=== PATIENT | male | born 1975 | race Caucasian/White ===

== ENCOUNTER 2017-07-24 21:55 | Emergency (ER) | payer OTHER ==
[~2017-07-24] VITALS: Ht 180.3 cm; Wt 95.3 kg
[~2017-07-24 21:55] MED LIST: CIPR500T94 PO; EPIPEN 2-P0.3 MG/0.3 IJ; HYDR-971 PO; HYDR25TA PO; METR250T PO; ONDA4TAB10 SL; PRED-220 PO
[2017-07-24 22:07] VITALS: BP 145/96
[2017-07-24] MEDS ORDERED: predniSONE 20 MG TABLET PO ONE (22:30)
[2017-07-24] MEDS ORDERED: HYDROcodone/APAP 5/325MG 1 TAB TABLET PO ONE (22:30)
[2017-07-24] MEDS ORDERED: HYDR-971 PO (22:54)
[2017-07-24] MEDS ORDERED: PRED20TA PO (22:54)
--- NOTE | 2017-07-24 22:54 | PHYS DOC ---
Past Medical History Past Medical History: Hypertension Additional Past Medical Histor: sciatica Past Surgical History: No Surgical History Additional Information: 1 ppd Alcohol Use: None Drug Use: None Adult General Chief Complaint Chief Complaint: LOWER EXT PAIN HPI HPI Patient is a 42 year old male presents the ED complaining of back pain 2 days. Patient states he has a history of sciatica. 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 Patient states he has pain that runs from his left buttock down his left leg. Describes the pain as sharp. Rates the pain as 8 out of 10. States same symptoms with previous exacerbations of his sciatica pain. Denies fever, recent travel, calf pain, headache, trauma, nausea/ vomiting, dizziness, weakness, chest pain or shortness of breath. Review of Systems Review of Systems Constitutional: Denies fever or chills [] Eyes: Denies change in visual acuity, redness, or eye pain [] HENT: Denies nasal congestion or sore throat [] Respiratory: Denies cough or shortness of breath [] Cardiovascular: No additional information not addressed in HPI [] GI: Denies abdominal pain, nausea, vomiting, bloody stools or diarrhea [] : Denies dysuria or hematuria [] Musculoskeletal: Denies back pain or joint pain [] Integument: Denies rash or skin lesions [] Neurologic: Denies headache, focal weakness or sensory changes [] Endocrine: Denies polyuria or polydipsia [] All other systems were reviewed and found to be within normal limits, except as documented in this note. Current Medications Current Medications Current Medications Medications (Trade) Dose Ordered Sig/[facility] Start Time Stop Time Status Last Admin Dose Admin Acetaminophen/ Hydrocodone Bitart (Lortab 5/325) 1 tab 1X ONCE 07/24/17 22:30 07/24/17 22:31 DC 07/24/17 22:47 1 TAB Prednisone (Prednisone) 60 mg 1X ONCE 07/24/17 22:30 07/24/17 22:31 DC 07/24/17 22:47 60 MG Allergies Allergies Allergies Coded Allergies Type Severity Reaction Last Updated Verified No Known Drug Allergies 02/23/14 No Physical Exam Physical Exam Constitutional: Well developed, well nourished, no acute distress, non-toxic appearance. [] HENT: Normocephalic, atraumatic, bilateral external ears normal, oropharynx moist, no oral exudates, nose normal. [] Eyes: PERRLA, EOMI, conjunctiva normal, no discharge. [] Neck: Normal range of motion, no tenderness, supple, no stridor. [] Cardiovascular:Heart rate regular rhythm, no murmur [] Lungs & Thorax: Bilateral breath sounds clear to auscultation [] Abdomen: Bowel sounds normal, soft, no tenderness, no masses, no pulsatile masses. [] Skin: Warm, dry, no erythema, no rash. [] Back: No tenderness FROM. NV INTACT, no CVA tenderness. [] Extremities: No bony tenderness, PAIN RADIATES DOWN LEFT LEG IN SCIATIC NERVE DISTRIBUTION. no cyanosis, no clubbing, ROM intact, no edema. [] Neurologic: Alert and oriented X 3, normal motor function, normal sensory function, no focal deficits noted. [] Psychologic: Affect normal, judgement normal, mood normal. [] Current Patient Data Vital Signs Vital Signs Date Time Temp Pulse Resp B/P (MAP) Pulse Ox O2 Delivery O2 Flow Rate FiO2 07/24/17 22:47 20 95 Room Air 07/24/17 22:07 98.1 81 98.1 EKG EKG [] Radiology/Procedures Radiology/Procedures [] Course & Med Decision Making Course & Med Decision Making Pertinent Labs and Imaging studies reviewed. (See chart for details) []No bony tenderness. No x-ray warranted. Patient's pain improved in ED. Patient able to ambulate without assistance. No focal neural deficits. Discussed follow-up with orthopedics in 1-2 days. Provided contact information/ education. Discussed reasons to return to the ED. Patient understands and agrees with plan. Dragon Disclaimer Dragon Disclaimer This electronic medical record was generated, in whole or in part, using a voice recognition dictation system. Departure Departure Impression: Primary Impression: Sciatica Disposition: 01 HOME, SELF-CARE Condition: IMPROVED Referrals: MAXX JASON (PCP) MIKE MAZA MD Patient Instructions: Sciatica Scripts Prednisone (PREDNISONE) 20 Mg Tablet 2 TAB PO DAILY for 5 Days, #10 TAB Prov: JOHN ROBLERO 07/24/17 Hydrocodone/Apap 5-325 (NORCO 5-325 TABLET) 1 Each Tablet 1 TAB PO Q4-6HRS, #10 TAB Prov: JOHN ROBLERO 07/24/17 JOHN ROBLERO Jul 24, 2017 22:54
== END 2017-07-24 23:10 | disposition home or self-care (01) ==
LOC: ER 21:55
DX: M54.42 Lumbago with sciatica, left side (principal); I10 Essential (primary) hypertension; F17.200 Nicotine dependence, unspecified, uncomplicated
CPT/HCPCS: 99283; J7512

== ENCOUNTER 2019-01-01 16:00 | Emergency (ER) | payer OTHER ==
[~2019-01-01] VITALS: Ht 180.3 cm; Wt 95.3 kg
[~2019-01-01 16:00] MED LIST changes: +HYDR-3164 PO; -HYDR-971 PO; +PRED20TA PO
[2019-01-01] MEDS ORDERED: FLUORESCEIN OPHTH TEST STRIP. ONE (16:50)
[2019-01-01] MEDS ORDERED: TETRACAINE 0.5% OPHTH SOLUTION 4ML BOTTLE. ONE (16:50)
[2019-01-01] MEDS ORDERED: PROPARACAINE 0.5% OPHTH SOLUTION 15ML BOTTLE. OD ONE (17:00)
--- NOTE | 2019-01-01 17:16 | PHYS DOC ---
Past Medical History Past Medical History: Hypertension Additional Past Medical Histor: sciatica (REYNA PENG DO) Past Surgical History: No Surgical History (REYNA PENG DO) Alcohol Use: None Drug Use: None (REYNA PENG DO) Adult General Chief Complaint Chief Complaint: EYE PROBLEMS HPI HPI Patient is a 43 year old male who presents with acute right eye pain/injury while clearing brush pile. Patient states he was throwing of briar tree when a thorn scraped across his right eye. 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 Reports eye pain, tearing and blurred vision. He can't distinguish a foreign body sensation. Patient does not wear contact lenses or eye glasses. He was not wearing protective eyewear at time of injury. Last tetanus is unknown.[] (REYNA PENG DO) Review of Systems Review of Systems ROS All other systems were reviewed and found to be within normal limits, except as documented in this note. (REYNA PENG DO) Current Medications Current Medications Current Medications Medications (Trade) Dose Ordered Sig/Ricci Start Time Stop Time Status Last Admin Dose Admin Diphtheria/ Tetanus/Acell Pertussis (Boostrix) 0.5 ml ONCE ONCE 01/01/19 18:30 01/01/19 18:31 DC 01/01/19 18:27 0.5 ML Fluorescein Sodium (Ful-Lois) 1 strip 1X ONCE 01/01/19 19:30 01/01/19 19:31 DC Morphine Sulfate (Morphine Sulfate) 4 mg 1X ONCE 01/01/19 18:30 01/01/19 18:31 DC 01/01/19 18:16 4 MG Ondansetron HCl (Zofran) 4 mg 1X ONCE 01/01/19 17:30 01/01/19 17:31 DC 01/01/19 17:26 4 MG Proparacaine HCl (Alcaine) 3 drop 1X ONCE 01/01/19 17:00 01/01/19 17:59 DC Tetracaine HCl (Tetracaine) 1 drop 1X ONCE 01/01/19 17:30 01/01/19 17:31 DC 01/01/19 17:30 1 DROP Vancomycin HCl (Vanco Per Pharmacy) 1 each PRN DAILY PRN 01/01/19 18:00 Vancomycin HCl 2 gm/Sodium Chloride 500 ml @ 250 mls/hr 1X ONCE 01/01/19 18:15 01/01/19 20:14 01/01/19 18:18 250 MLS/HR (HEIDI GREGG DO) Allergies Allergies Allergies Coded Allergies Type Severity Reaction Last Updated Verified No Known Drug Allergies 02/23/14 No (HEIDI GREGG DO) Physical Exam Physical Exam Constitutional: Well developed, well nourished, moderate distress secondary to pain. [] HENT: Normocephalic, atraumatic, bilateral external ears normal, oropharynx moist, no oral exudates, nose normal. [] Eyes: PERRLA, EOMI, orbits, no lid laceration, abrasion, contusion, right conjunctivae are sclerae are injected with min lid upper/lower lid edema, large ovoid shaped corneal abrasion at 5 o'clock position with possible Elieser sign. No obvious identified foreign body. [] Neck: Normal range of motion, no tenderness. [] Neurologic: Alert and oriented X 3, normal motor function, normal sensory function, no focal deficits noted. [] Psychologic: Affect normal, judgement normal, mood normal. [] (REYNA PENG DO) Physical Exam 1844 Exam Constitutional: Well developed, well nourished, no acute distress, non-toxic appearance HENT: Normocephalic, atraumatic, oropharynx moist Eyes: PERRL, EOMI, conjunctiva injected to right eye, no discharge; Slit lamp exam noted right eye with positive fluorescene uptake at 5 o'clock with vertical line, no active flow noted at this time, small fluorescene blush which appears to be in anterior chamber Visual acuities: L 20/30 R 20/25 B 20/20. Skin: Warm, dry, no erythema, no rash Neurologic: Alert and oriented X 3, no focal deficits noted Psychologic: Affect normal, judgement normal (HEIDI GREGG DO) Current Patient Data Vital Signs Vital Signs Date Time Temp Pulse Resp B/P (MAP) Pulse Ox O2 Delivery O2 Flow Rate FiO2 01/01/19 19:10 70 18 157/95 (115) 96 Room Air 01/01/19 16:48 98.4 98.4 (HEIDI GREGG DO) Lab Values Laboratory Tests Test 01/01/19 17:20 White Blood Count 12.2 x10^3/uL (4.0-11.0) H Red Blood Count 4.96 x10^6/uL (4.30-5.70) Hemoglobin 15.8 g/dL (13.0-17.5) Hematocrit 45.3 % (39.0-53.0) Mean Corpuscular Volume 91 fL (79-100) Mean Corpuscular Hemoglobin 32 pg (25-35) Mean Corpuscular Hemoglobin Concent 35 g/dL (31-37) Red Cell Distribution Width 12.6 % (11.5-14.5) Platelet Count 283 x10^3/uL (140-400) Neutrophils (%) (Auto) 68 % (31-73) Lymphocytes (%) (Auto) 22 % (24-48) L Monocytes (%) (Auto) 7 % (0-9) Eosinophils (%) (Auto) 2 % (0-3) Basophils (%) (Auto) 1 % (0-3) Neutrophils # (Auto) 8.3 x10^3uL (1.8-7.7) H Lymphocytes # (Auto) 2.7 x10^3/uL (1.0-4.8) Monocytes # (Auto) 0.9 x10^3/uL (0.0-1.1) Eosinophils # (Auto) 0.2 x10^3/uL (0.0-0.7) Basophils # (Auto) 0.1 x10^3/uL (0.0-0.2) Sodium Level 142 mmol/L (136-145) Potassium Level 3.7 mmol/L (3.5-5.1) Chloride Level 103 mmol/L (98-107) Carbon Dioxide Level 28 mmol/L (21-32) Anion Gap 11 (6-14) Blood Urea Nitrogen 20 mg/dL (8-26) Creatinine 1.6 mg/dL (0.7-1.3) H Estimated GFR (Cockcroft-Gault) 47.9 Glucose Level 72 mg/dL (70-99) Calcium Level 10.0 mg/dL (8.5-10.1) Laboratory Tests 01/01/19 17:20 Laboratory Tests 01/01/19 17:20 (HEIDI GREGG DO) Lab Values Laboratory Tests Test 01/01/19 17:20 White Blood Count 12.2 x10^3/uL (4.0-11.0) H Red Blood Count 4.96 x10^6/uL (4.30-5.70) Hemoglobin 15.8 g/dL (13.0-17.5) Hematocrit 45.3 % (39.0-53.0) Mean Corpuscular Volume 91 fL (79-100) Mean Corpuscular Hemoglobin 32 pg (25-35) Mean Corpuscular Hemoglobin Concent 35 g/dL (31-37) Red Cell Distribution Width 12.6 % (11.5-14.5) Platelet Count 283 x10^3/uL (140-400) Neutrophils (%) (Auto) 68 % (31-73) Lymphocytes (%) (Auto) 22 % (24-48) L Monocytes (%) (Auto) 7 % (0-9) Eosinophils (%) (Auto) 2 % (0-3) Basophils (%) (Auto) 1 % (0-3) Neutrophils # (Auto) 8.3 x10^3uL (1.8-7.7) H Lymphocytes # (Auto) 2.7 x10^3/uL (1.0-4.8) Monocytes # (Auto) 0.9 x10^3/uL (0.0-1.1) Eosinophils # (Auto) 0.2 x10^3/uL (0.0-0.7) Basophils # (Auto) 0.1 x10^3/uL (0.0-0.2) Sodium Level 142 mmol/L (136-145) Potassium Level 3.7 mmol/L (3.5-5.1) Chloride Level 103 mmol/L (98-107) Carbon Dioxide Level 28 mmol/L (21-32) Anion Gap 11 (6-14) Blood Urea Nitrogen 20 mg/dL (8-26) Creatinine 1.6 mg/dL (0.7-1.3) H Estimated GFR (Cockcroft-Gault) 47.9 Glucose Level 72 mg/dL (70-99) Calcium Level 10.0 mg/dL (8.5-10.1) Laboratory Tests 01/01/19 17:20 Laboratory Tests 01/01/19 17:20 (REYNA PENG DO) EKG EKG [] (REYNA PENG DO) Radiology/Procedures Radiology/Procedures [CT orbits pending: ] (REYNA PENG DO) Radiology/Procedures PROCEDURE: CT ORBITS WO CONTRAST CT study of the orbits without contrast Clinical indications: Right eye pain. Possible foreign body. TECHNIQUE: Noncontrast helical CT scanning of the orbits was performed. Multiplanar 2-D reconstructions were generated. PQRS compliance Statement One or more of the following individualized dose reduction techniques were utilized for this study: 1. Automated exposure control 2. Adjustment of the mA and/or kV according to patient size 3. Use of iterative reconstruction technique FINDINGS: No metallic or radiopaque foreign body is seen. No preseptal or post septal soft tissue edema is evident. The extraocular muscles and optic nerves are symmetric and unremarkable. No soft tissue hematoma or soft tissue mass or abscess is seen within either orbit. No proptosis is seen. No fracture is evident. Mild mucosal thickening of ethmoid sinuses is seen bilaterally. No air-fluid levels are seen within the paranasal sinuses. No lytic process is evident. IMPRESSION: Mild mucosal thickening of the ethmoid sinuses bilaterally. Otherwise normal study. No foreign body is evident. Electronically signed by: Jeff Nye MD (01/01/2019 6:42 PM) [facility] (HEIDI GREGG DO) Course & Med Decision Making Course & Med Decision Making Pertinent Labs and Imaging studies reviewed. (See chart for details) [Right eye injury with concern for corneal abrasion and possible globe rupture. Pain addressed, eye irrigated, large corneal abrasion present with possible Elieser sign on fluorescein staining. No foreign body identified. Tetanus updated and initial abx prophylaxis given. CT orbits ordered and pending. Care en dorsed to oncoming [facility] at 1800 with anticipation transfer to tertiary care center with ophthalmology coverage. ] (REYNA PENG DO) Course & Med Decision Making 1800- Sign out received from Dr. Peng for patient with possible puncture to anterior chamber of right eye. CT orbits pending at time of sign out. Patient seen and evaluated by myself. Repeat fluorescein exam performed. Findings continue with possible anterior chamber puncture. NO active flow noted at this time. Eyelid everted. Visual acuities performed. CT orbits without retained foreign body. 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 Patient requesting . Discussed case with transfer line ([place]). Dr. Cinthya Phelps accepting of transfer to ED for further evaluation and treatment. Discussed current findings and plan with patient and family, who acknowledge understanding and agreement. (HEIDI GREGG DO) Dragon Disclaimer Dragon Disclaimer This electronic medical record was generated, in whole or in part, using a voice recognition dictation system. (REYNA PENG DO) Departure Departure Impression: Primary Impression: Injury of globe of right eye Disposition: 05 TRANSFER OTHER ( ED) Condition: GUARDED Referrals: MAXX JASON (PCP) Problem Qualifiers Primary Impression: Injury of globe of right eye Encounter type: initial encounter Qualified Codes: S05.91XA - Unspecified injury of right eye and orbit, initial encounter REYNA PENG DO January 01, 2019 17:16 HEIDI GREGG DO January 01, 2019 18:52
[2019-01-01 17:28] LABS: BASO # 0.1 x10^3/uL (0.0-0.2); BASO % 1 % (0-3); EOS # 0.2 x10^3/uL (0.0-0.7); EOS % 2 % (0-3); HEMATOCRIT 45.3 % (39.0-53.0); HEMOGLOBIN 15.8 g/dL (13.0-17.5); LYMPH # 2.7 x10^3/uL (1.0-4.8); LYMPH % 22 % (24-48); MEAN CORPUSCULAR HEMOGLOBIN 32 pg (25-35); MEAN CORPUSCULAR HGB CONC 35 g/dL (31-37); MEAN CORPUSCULAR VOLUME 91 fL (79-100); MONO # 0.9 x10^3/uL (0.0-1.1); MONO % 7 % (0-9); NEUT # 8.3 x10^3uL (1.8-7.7); NEUT % 68 % (31-73); PLATELET COUNT 283 x10^3/uL (140-400); RED BLOOD COUNT 4.96 x10^6/uL (4.30-5.70); RED CELL DISTRIBUTION WIDTH 12.6 % (11.5-14.5); WHITE BLOOD COUNT 12.2 x10^3/uL (4.0-11.0)
[2019-01-01] MEDS ORDERED: MORPHINE SULFATE 4 MG/ML VIAL. IV ONE ×2 (17:30→18:30)
[2019-01-01] MEDS ORDERED: ONDANSETRON PF 4 MG/2 ML VIAL. IV ONE (17:30)
[2019-01-01] MEDS ORDERED: TETRACAINE 0.5% OPHTH SOLUTION 4ML BOTTLE. OD ONE (17:30)
[2019-01-01] MEDS ORDERED: FLUORESCEIN OPHTH TEST STRIP. OD ONE ×2 (17:30→19:30)
[2019-01-01 17:36] LABS: CREATININE 1.6 mg/dL (0.7-1.3); GFR 47.9; POTASSIUM 3.7 mmol/L (3.5-5.1)
[2019-01-01] MEDS ORDERED: VANCOMYCIN PER PHARMACY MC PRN (18:00)
[2019-01-01] MEDS ORDERED: VANCOMYCIN 2 GM in IV NORMAL SALINE 500ML BAG 500 ML IV ONE (18:15)
[2019-01-01] MEDS ORDERED: DIPHTH,PERTUSS(ACELL),TET TOX 0.5 ML DISP.SYRIN. VAX IM ONE (18:30)
--- NOTE | 2019-01-01 18:45 | RAD ---
CT study of the orbits without contrast Clinical indications: Right eye pain. Possible foreign body. TECHNIQUE: Noncontrast helical CT scanning of the orbits was performed. Multiplanar 2-D reconstructions were generated. PQRS compliance Statement One or more of the following individualized dose reduction techniques were utilized for this study: 1. Automated exposure control 2. Adjustment of the mA and/or kV according to patient size 3. Use of iterative reconstruction technique FINDINGS: No metallic or radiopaque foreign body is seen. No preseptal or post septal soft tissue edema is evident. The extraocular muscles and optic nerves are symmetric and unremarkable. No soft tissue hematoma or soft tissue mass or abscess is seen within either orbit. No proptosis is seen. No fracture is evident. Mild mucosal thickening of ethmoid sinuses is seen bilaterally. No air-fluid levels are seen within the paranasal sinuses. No lytic process is evident. IMPRESSION: Mild mucosal thickening of the ethmoid sinuses bilaterally. Otherwise normal study. No foreign body is evident. Electronically signed by: Jeff Nye MD (01/01/2019 6:42 PM) [facility]
[2019-01-01 19:10] VITALS: BP 157/95
== END 2019-01-01 20:53 | disposition short-term general hospital (02) ==
LOC: ER 16:00
DX: S05.91XA Unspecified injury of right eye and orbit, initial encounter (principal); I10 Essential (primary) hypertension; W26.8XXA Contact with other sharp object(s), not elsewhere classified, initial encounter; Y93.89 Activity, other specified; Y92.89 Other specified places as the place of occurrence of the external cause; Y99.8 Other external cause status
CPT/HCPCS: 36415; 70480; 80048; 85025; 90471; 90715; 96365; 96366; 96375; 96376; 99285; J2270; J2405; J3370; J7040

== ENCOUNTER 2020-02-29 07:24 | Observation (INO) | payer OTHER ==
[~2020-02-29] VITALS: Ht 175.3 cm; Wt 95.4 kg
[2020-02-29 07:56] LABS: CALCIUM 9.3 mg/dL (8.5-10.1); CREATININE 1.1 mg/dL (0.7-1.3); GFR 73.4; POTASSIUM 3.2 mmol/L (3.5-5.1)
[2020-02-29] MEDS ORDERED: ASPIRIN CHEWABLE 81 MG TABLET. PO ONE (08:00)
[2020-02-29] MEDS: NITROGLYCERIN SUBLINGUAL 0.4 MG BOTTLE OF 25. SL PRN ×3 (08:01→19:12)
--- NOTE | 2020-02-29 08:02 | RAD ---
PORTABLE CHEST 1V 02/29/2020 7:30 AM INDICATION: Chest pain COMPARISON: None available TECHNIQUE: Portable frontal view of the chest is provided. FINDINGS: The cardiomediastinal silhouette is within normal limits. Lungs are clear. There are no significant pleural effusions. There is no pulmonary vascular congestion. No pneumothorax. No suspicious osseous abnormality. IMPRESSION: There is no acute cardiopulmonary process. Electronically signed by: Gricel Mckeon MD (02/29/2020 7:59 AM) [id number]
[2020-02-29 08:03] LABS: ALBUMIN 4.6 g/dL (3.4-5.0); ALBUMIN/GLOBULIN RATIO 1.5 (1.0-1.7); MAGNESIUM 1.9 mg/dL (1.8-2.4); TOTAL BILIRUBIN 0.4 mg/dL (0.2-1.0); TOTAL PROTEIN 7.6 g/dL (6.4-8.2)
[2020-02-29 08:12] LABS: BASO % 1 % (0-3); EOS # 0.2 x10^3/uL (0.0-0.7); EOS % 3 % (0-3); HEMATOCRIT 43.5 % (39.0-53.0); HEMOGLOBIN 15.5 g/dL (13.0-17.5); LYMPH # 1.6 x10^3/uL (1.0-4.8); LYMPH % 24 % (24-48); MEAN CORPUSCULAR HEMOGLOBIN 33 pg (25-35); MEAN CORPUSCULAR HGB CONC 36 g/dL (31-37); MEAN CORPUSCULAR VOLUME 92 fL (79-100); MONO # 0.6 x10^3/uL (0.0-1.1); MONO % 9 % (0-9); NEUT # 4.3 x10^3/uL (1.8-7.7); NEUT % 64 % (31-73); PLATELET COUNT 281 x10^3/uL (140-400); RED BLOOD COUNT 4.72 x10^6/uL (4.30-5.70); RED CELL DISTRIBUTION WIDTH 12.7 % (11.5-14.5); WHITE BLOOD COUNT 6.9 x10^3/uL (4.0-11.0)
--- NOTE | 2020-02-29 08:14 | PHYS DOC ---
Past Medical History Past Medical History: Hypertension Additional Past Medical Histor: sciatica Past Surgical History: No Surgical History Smoking Status: Current Every Day Smoker Additional Information: 1PK A DAY Alcohol Use: None Drug Use: None General Adult EDM: Chief Complaint: CHEST PAIN HPI: HPI: Patient is a 44 year old male who presented to ER today for evaluation of substernal chest pain that radiated to his right shoulder and left arm started this morning while he was walking into his office from the parking lot. Patient felt like somebody sitting on his chest. Patient has history of hypertension, he is on medication for that patient is a smoker. He had no history of blood clot disorder, no recent travel or operation. Patient denies any cough or fever. Patient denies being exposed to anybody who tested positive for COVID-19. Patient do have a strong family history of coronary artery disease. Patient'S father had a heart attack at the age of 45. Patient'S mother also have history of heart disease as well. Review of Systems: Review of Systems: Constitutional: Denies fever or chills. [] Eyes: Denies change in visual acuity. [] HENT: Denies nasal congestion or sore throat. [] Respiratory: Denies cough or shortness of breath. [] Cardiovascular: Positive for chest pain GI: Denies abdominal pain, nausea, vomiting, bloody stools or diarrhea. [] : Denies dysuria. [] Musculoskeletal: Denies back pain or joint pain. [] Integument: Denies rash. [] Neurologic: Denies headache, focal weakness or sensory changes. [] Endocrine: Denies polyuria or polydipsia. [] Lymphatic: Denies swollen glands. [] Psychiatric: Denies depression or anxiety. [] Heart Score: HEART Score for Chest Pain: HEART Score for Chest Pain Response (Comments) Value History Moderately Suspicious 1 ECG Normal 0 Age < 45 0 Risk Factors >3 Risk Factors or Hx CAD 2 Troponin < Normal Limit 0 Total 3 Risk Factors: Risk Factors: DM, Current or recent (<one month) smoker, HTN, HLP, family history of CAD, obesity. Risk Scores: Score 0 - 3: 2.5% MACE over next 6 weeks - Discharge Home Score 4 - 6: 20.3% MACE over next 6 weeks - Admit for Clinical Observation Score 7 - 10: 72.7% MACE over next 6 weeks - Early Invasive Strategies Current Medications: Current Medications Medications (Trade) Dose Ordered Sig/Ricci Start Time Stop Time Status Last Admin Dose Admin Aspirin (Aspirin Chewable) 324 mg 1X ONCE 02/29/20 08:00 02/29/20 08:01 DC 02/29/20 08:00 324 MG Nitroglycerin (Nitrostat) 0.4 mg PRN Q5MIN PRN 02/29/20 08:00 02/29/20 08:10 0.4 MG Allergies: Allergies: Allergies Coded Allergies Type Severity Reaction Last Updated Verified No Known Drug Allergies 02/23/14 No Physical Exam: PE: Constitutional: Well developed, well nourished, mild acute distress due to pain, non-toxic appearance. [] HENT: Normocephalic, atraumatic, bilateral external ears normal, oropharynx moist, no oral exudates, nose normal. [] Eyes: PERRLA, EOMI, conjunctiva normal, no discharge. [] Neck: Normal range of motion, no tenderness, supple, no stridor. [] Cardiovascular:Heart rate regular rhythm, no murmur [] Lungs & Thorax: Bilateral breath sounds clear to auscultation [] Abdomen: Bowel sounds normal, soft, no tenderness, no masses, no pulsatile masses. [] Skin: Warm, dry, no erythema, no rash. [] Back: No tenderness, no CVA tenderness. [] Extremities: No tenderness, no cyanosis, no clubbing, ROM intact, no edema. [] Neurologic: Alert and oriented X 3, normal motor function, normal sensory funct ion, no focal deficits noted. [] Psychologic: Affect normal, judgement normal, mood normal. [] Current Patient Data: Labs: Laboratory Tests Test 02/29/20 07:37 Sodium Level 138 mmol/L (136-145) Potassium Level 3.2 mmol/L (3.5-5.1) L Chloride Level 100 mmol/L (98-107) Carbon Dioxide Level 30 mmol/L (21-32) Anion Gap 8 (6-14) Blood Urea Nitrogen 16 mg/dL (8-26) Creatinine 1.1 mg/dL (0.7-1.3) Estimated GFR (Cockcroft-Gault) 73.4 BUN/Creatinine Ratio 15 (6-20) Glucose Level 143 mg/dL (70-99) H Calcium Level 9.3 mg/dL (8.5-10.1) Magnesium Level 1.9 mg/dL (1.8-2.4) Total Bilirubin 0.4 mg/dL (0.2-1.0) Aspartate Amino Transferase (AST) 32 U/L (15-37) Alanine Aminotransferase (ALT) 63 U/L (16-63) Alkaline Phosphatase 65 U/L (46-116) Creatine Kinase 429 U/L (39-308) H Troponin I Quantitative < 0.017 ng/mL (0.000-0.055) DQ-[id number]-Type Natriuretic Peptide 20 pg/mL (0-124) Total Protein 7.6 g/dL (6.4-8.2) Albumin 4.6 g/dL (3.4-5.0) Albumin/Globulin Ratio 1.5 (1.0-1.7) Lipase 102 U/L (73-393) Laboratory Tests 02/29/20 07:37 Vital Signs: Vital Signs Date Time Temp Pulse Resp B/P (MAP) Pulse Ox O2 Delivery O2 Flow Rate FiO2 02/29/20 08:10 88 113/58 02/29/20 07:24 98.4 16 99 Room Air 98.4 EKG: EKG: EKG was done at 728, heart rate of 91 bpm, sinus rhythm, no ST segment elevati on. [] Radiology/Procedures: Radiology/Procedures: [][facility] [address] [place] [address] IMAGING REPORT Signed PATIENT: GEOFFREY SAMAYOA ACCOUNT: [id number] : 1975 LOCATION: ER AGE: 44 SEX: M EXAM STATUS: REG ER ORD. PHYSICIAN: REGAN LOZANO DO REASON: chest pain PROCEDURE: PORTABLE CHEST 1V PORTABLE CHEST 1V 02/29/2020 7:30 AM INDICATION: Chest pain COMPARISON: None available TECHNIQUE: Portable frontal view of the chest is provided. FINDINGS: The cardiomediastinal silhouette is within normal limits. Lungs are clear. There are no significant pleural effusions. There is no pulmonary vascular congestion. No pneumothorax. No suspicious osseous abnormality. IMPRESSION: There is no acute cardiopulmonary process. Electronically signed by: Alexy Watters MD (02/29/2020 7:59 AM) [id number] DICTATED and SIGNED BY: ALEXY WATTERS MD DATE: 02/29/20 0759 Course & Med Decision Making: Course & Med Decision Making Pertinent Labs and Imaging studies reviewed. (See chart for details) Patient is a 44-year-old male with history of high blood pressure, smoker, strong family history of heart disease, presented with substernal chest pain. His chest pain improved with nitroglycerin. His lab work came back normal so far, his EKG also did not show any ST segment elevation. With his risk factor patient will be admitted to hospital for observation. Dragon Disclaimer: Dragon Disclaimer: This electronic medical record was generated, in whole or in part, using a voice recognition dictation system. Departure Departure Impression: Primary Impression: Chest pain Disposition: ADMITTED INPATIENT Admitting Physician: OSKAR (Dr. Crandall) Condition: STABLE Referrals: MAXX JASON (PCP) Justicifation of Admission Dx: Justifications for Admission: Justification of Admission Dx: N/A REGAN LOZANO DO Feb 29, 2020 08:14
[2020-02-29 08:27] LABS: PROTHROMBIN TIME PATIENT 11.6 SEC (11.7-14.0)
[2020-02-29] MEDS ORDERED: POTASSIUM CHLORIDE 20 MEQ TABLET.ER. PO ONE (08:30)
[2020-02-29 08:34] LABS: BILIRUBIN,URINE NEGATIVE (NEG); CLARITY,URINE CLEAR; COLOR,URINE YELLOW; NITRITE,URINE NEGATIVE (NEG); PH,URINE 6.5 (<5.0-8.0); PROTEIN,URINE NEGATIVE (NEG-TRACE); UROBILINOGEN,URINE 0.2 mg/dL (0.2 mg/dL)
[2020-02-29 08:50] LABS: BACTERIA,URINE 0 /HPF (0-FEW); SQUAMOUS EPITHELIAL CELL,UR OCC /LPF
[2020-02-29 08:51] LABS: AMORPHOUS SEDIMENT,UR PRESENT /HPF; HYALINE CASTS, URINE OCCASIONAL /HPF
[2020-02-29] MEDS ORDERED: IV NORMAL SALINE 1000ML BAG 1,000 ML IV ONE ×2 (09:00)
--- NOTE | 2020-02-29 09:00 | PDOC2 ---
CARDIAC CONSULT DATE OF CONSULT Date of Consult DATE: 02/29/20 TIME: 08:37 REASON FOR CONSULT Reason for Consult: Chest pain SOURCE Source: Chart review, Patient HISTORY OF PRESENT ILLNESS HISTORY OF PRESENT ILLNESS This is a pleasant 44 yo male admitted for complains of chest pain. This morning he was on his way to work when he started having sharp chest pressure that radiated to his right shoulder and arm. He was a little nauseated and had palpitations but no SOA. No past hx of CAD or arrhythmias and no recent fever, cough, falls or any recent injury. His chest pain has been going on since 620 this morning and slightly better after NTG. He does take ibuprofen everyday 400 mg in addition to meloxicam due to sciatica. He does have some anxiety and stressed out out still as both of his parents in the last yr 2 months apart. Father with alzheimers and mother due to fluid around her heart. They both have NC in their 40s. PAST MEDICAL HISTORY Cardiovascular: HTN, Hyperlipidemia Pulmonary: No pertinent hx CENTRAL NERVOUS SYSTEM: Other (No pertinent history) GI: No pertinent hx Heme/Onc: No pertinent hx Hepatobiliary: No pertinent hx Psych: Anxiety Musculoskeletal: Other (No pertinent history) Rheumatologic: No pertinent hx Infectious disease: No pertinent hx ENT: No pertinent hx Renal/: No pertinent hx Endocrine: No pertinent hx Dermatology: No pertinent hx FAMILY HISTORY Family History: Coronary Artery Disease (mother and father), Hypertension, St roke (mother, father) SOCIAL HISTORY Smoke: 1 pack per day ALCOHOL: none Drugs: None Lives: with Family (spouse) CURRENT MEDICATIONS CURRENT MEDICATIONS Current Medications Medications (Trade) Dose Ordered Sig/Ricci Route PRN Reason Start Time Stop Time Status Last Admin Dose Admin Aspirin (Aspirin Chewable) 324 mg 1X ONCE PO 02/29/20 08:00 02/29/20 08:01 DC 02/29/20 08:00 Nitroglycerin (Nitrostat) 0.4 mg PRN Q5MIN PRN SL CHEST PAIN 02/29/20 08:00 02/29/20 08:10 ALLERGIES ALLERGIES: Coded Allergies: No Known Drug Allergies (Unverified , 02/23/14) ROS Review of System 14 point ROS evaluated with pertinent positives noted per HPI PHYSICAL EXAM General: Alert, Oriented X3, Cooperative, No acute distress HEENT: Atraumatic, Mucous membr. moist/pink Lungs: Clear to auscultation, Normal air movement Heart: Regular rate (SR), Normal S1, Normal S2, No murmurs Abdomen: Soft, No tenderness Extremities: No cyanosis, No edema Skin: No breakdown, No significant lesion Neuro: Normal speech, Sensation intact Psych/Mental Status: Mental status NL, Mood NL MUSCULOSKELETAL: Full range of motion without pain VITALS/I&O VITALS/I&O: Vital Signs Date Time Temp Pulse Resp B/P (MAP) Pulse Ox O2 Delivery O2 Flow Rate FiO2 02/29/20 08:16 96 96/53 (67) 02/29/20 07:24 98.4 16 99 Room Air 98.4 LABS Lab: Laboratory Tests Test 02/29/20 07:37 White Blood Count 6.9 x10^3/uL (4.0-11.0) Red Blood Count 4.72 x10^6/uL (4.30-5.70) Hemoglobin 15.5 g/dL (13.0-17.5) Hematocrit 43.5 % (39.0-53.0) Mean Corpuscular Volume 92 fL (79-100) Mean Corpuscular Hemoglobin 33 pg (25-35) Mean Corpuscular Hemoglobin Concent 36 g/dL (31-37) Red Cell Distribution Width 12.7 % (11.5-14.5) Platelet Count 281 x10^3/uL (140-400) Neutrophils (%) (Auto) 64 % (31-73) Lymphocytes (%) (Auto) 24 % (24-48) Monocytes (%) (Auto) 9 % (0-9) Eosinophils (%) (Auto) 3 % (0-3) Basophils (%) (Auto) 1 % (0-3) Neutrophils # (Auto) 4.3 x10^3/uL (1.8-7.7) Lymphocytes # (Auto) 1.6 x10^3/uL (1.0-4.8) Monocytes # (Auto) 0.6 x10^3/uL (0.0-1.1) Eosinophils # (Auto) 0.2 x10^3/uL (0.0-0.7) Basophils # (Auto) 0.0 x10^3/uL (0.0-0.2) Prothrombin Time 11.6 SEC (11.7-14.0) L Prothrombin Time INR 0.9 (0.8-1.1) Sodium Level 138 mmol/L (136-145) Potassium Level 3.2 mmol/L (3.5-5.1) L Chloride Level 100 mmol/L (98-107) Carbon Dioxide Level 30 mmol/L (21-32) Anion Gap 8 (6-14) Blood Urea Nitrogen 16 mg/dL (8-26) Creatinine 1.1 mg/dL (0.7-1.3) Estimated GFR (Cockcroft-Gault) 73.4 BUN/Creatinine Ratio 15 (6-20) Glucose Level 143 mg/dL (70-99) H Calcium Level 9.3 mg/dL (8.5-10.1) Magnesium Level 1.9 mg/dL (1.8-2.4) Total Bilirubin 0.4 mg/dL (0.2-1.0) Aspartate Amino Transferase (AST) 32 U/L (15-37) Alanine Aminotransferase (ALT) 63 U/L (16-63) Alkaline Phosphatase 65 U/L (46-116) Creatine Kinase 429 U/L (39-308) H Troponin I Quantitative < 0.017 ng/mL (0.000-0.055) WN-Oce-O-Type Natriuretic Peptide 20 pg/mL (0-124) Total Protein 7.6 g/dL (6.4-8.2) Albumin 4.6 g/dL (3.4-5.0) Albumin/Globulin Ratio 1.5 (1.0-1.7) Lipase 102 U/L (73-393) Laboratory Tests 02/29/20 07:37 Laboratory Tests 02/29/20 07:37 ASSESSMENT/PLAN ASSESSMENT/PLAN 1. Chest pain: ACS features 2. HTN: controlled 3. HLP 4. Hyperglycemia 5. Family Hx of premature CAD 6. Tobaccoism Recommendations 1. Discussed options with pt. [facility] vs [facility] and due to significant cardiac risk factors and presentation, will proceed with [facility]. r/b/a. 2. He does take lisinopril and losartan and will DC either one. Continue home crestor 3. ASA. Will check A1C, TSH and lipids 4. TTE today 5. Smoking cessation ÁNGEL PEDROZA APRN Feb 29, 2020 09:00
[2020-02-29 09:41] LABS: CHOLESTEROL/HDL RATIO 2.7
--- NOTE | 2020-02-29 09:55 | EKG ---
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
[2020-02-29 11:34] LABS: AMPHETAMINE/METHAMPHETAMINE NEG (NEG); BARBITURATES NEG (NEG); BENZODIAZEPINES POS (NEG); CANNABINOIDS NEG (NEG); COCAINE NEG (NEG); METHADONE NEG (NEG); OPIATES NEG (NEG); PHENCYCLIDINE NEG (NEG)
--- NOTE | 2020-02-29 12:22 | PDOC1 ---
History and Physical Date of Admission: Date of Admission DATE: 02/29/20 TIME: 12:20 Chief Complaint: Problems: (1) Scrotal abscess (2) Anaphylactic reaction (3) Hornet sting (4) Colitis (5) Sciatica (6) Chest pain Chief Complain: Chest pain History of Present Illness: HPI: This is a 44-year-old male who was walking to his office and developed chest pain He describes as substernal He also describes pressure-like sensation He took small counter meds without and seem to help He does smoke and has a family history of coronary disease I talked to the ER doctor work on going into the patient Cardiology has been consulted they plan to go ahead and take [facility] to the [facility] Past Medical/Surgical History: PMH/PSH: Hypertension Hyperlipidemia Tobacco abuse Allergies: Allergies: Coded Allergies: No Known Drug Allergies (Unverified , 02/23/14) Family History: Family History: CAD Social History: Social History: He smokes no drink or drugs Current Medications: Current Medications Current Medications Aspirin (Aspirin Chewable) 324 mg 1X ONCE PO Last administered on 02/29/20at 08:00; Start 02/29/20 at 08:00; Stop 02/29/20 at 08:01; Status DC Nitroglycerin (Nitrostat) 0.4 mg PRN Q5MIN PRN SL CHEST PAIN Last administered on 02/29/20at 08:10; Start 02/29/20 at 08:00 Potassium Chloride (Klor-Con) 40 meq 1X ONCE PO Last administered on 02/29/20at 09:06; Start 02/29/20 at 08:30; Stop 02/29/20 at 08:31; Status DC Sodium Chloride 1,000 ml @ 75 mls/hr 1X ONCE IV Last administered on 02/29/20at 09:00; Start 02/29/20 at 09:00; Stop 02/29/20 at 22:19 Sodium Chloride 1,000 ml @ 1,000 mls/hr 1X ONCE IV Last administered on 02/29/20at 09:08; Start 02/29/20 at 09:00; Stop 02/29/20 at 09:59; Status DC Active Scripts Active Prednisone 20 Mg Tablet 2 Tab PO DAILY 5 Days [place] 5-325 Tablet (Acetaminophen/Hydrocodone Bitart) 1 Each Tablet 1 Tab PO Q4- 6HRS Zofran Odt (Ondansetron) 4 Mg Tab.rapdis 1 Tab SL Q8HRS [place] 5-325 Tablet (Acetaminophen/Hydrocodone Bitart) 1 Each Tablet 1 Tab PO PRN Q6HRS PRN Cipro (Ciprofloxacin Hcl) 500 Mg Tablet 1 Tab PO BID Flagyl (Metronidazole) 250 Mg Tablet 1 Tab PO TID Epipen 2-John (Epinephrine) 0.3 Mg/0.3 Ml Auto.injct 0.3 Mg IJ 1X PRN Prednisone 10 Mg Tablet 50 Mg PO DAILY Hydroxyzine Hcl 25 Mg Tablet 25 Mg PO QID PRN ROS: Review of Systems Review of System REVIEW OF SYSTEMS: GENERAL: Denies weakness SKIN: No bruising, hair changes or rashes. EYES: No blurred, double or loss of vision. NOSE AND THROAT: No history of nosebleeds, hoarseness or sore throat. HEART: Complains of chest LUNGS: Denies cough, hemoptysis, wheezing or shortness of breath. GASTROINTESTINAL: Denies changes in appetite, nausea, vomiting, diarrhea or constipation. GENITOURINARY: No history of frequency, urgency, hesitancy or nocturia. NEUROLOGIC: Denies history of numbness, tingling, or tremor. PSYCHIATRIC: No history of panic, anxiety or depression. ENDOCRINE: No history of heat or cold intolerance, polyuria or polydipsia. EXTREMITIES: Denies joint pain, pain on walking or stiffness. Physical Exam: Vital Signs: Vital Signs Date Time Temp Pulse Resp B/P (MAP) Pulse Ox O2 Delivery O2 Flow Rate FiO2 02/29/20 10:00 56 112/71 (85) 99 02/29/20 09:30 Room Air 02/29/20 07:24 98.4 16 98.4 Physcial Exam: GEN: No apparent distress. Alert and oriented HEENT: Normal cephalic, atraumatic, external auditory canals are patent EYES: Extraocular muscles are intact, pupil are equally round and reactive to light and accommodation MUSCULOSKELETAL: Well developed , well nourished, good range of motion ENDOCRINE: No thyromegaly was palpated LYMPHATICS: No cervical chain or axillary nodes were noted HEMATOPOIETIC: No bruising NECK: Supple, no JVD, no thyromegaly was noted LUNGS: Clear to auscultation in all lung dudley without rhonchi or wheezing HEART: RRR, S!, S2 present. Peripheral pulses intact, no obvious murmurs noted ABDOMEN: Soft, nontender. Positive bowel sounds, no organomegaly, normal bowel sounds EXTREMITIES: Without clubbing, cyanosis, or edema. Pedal pulses intact. Negative Homans sign NEUROLOGIC: Normal speech and tone. A&O x 3, moves all extremities, no obvious focal deficits PSYCHIATRIC: Normal affect, normal mood. Stable SKIN: No ulcerations or rashes, good skin turgor, no jaundice VASCULAR: Good capillary refill, neurovascular bundle appears to be intact Labs: Labs: Laboratory Tests Test 02/29/20 07:37 02/29/20 08:17 02/29/20 09:25 White Blood Count 6.9 x10^3/uL (4.0-11.0) Red Blood Count 4.72 x10^6/uL (4.30-5.70) Hemoglobin 15.5 g/dL (13.0-17.5) Hematocrit 43.5 % (39.0-53.0) Mean Corpuscular Volume 92 fL (79-100) Mean Corpuscular Hemoglobin 33 pg (25-35) Mean Corpuscular Hemoglobin Concent 36 g/dL (31-37) Red Cell Distribution Width 12.7 % (11.5-14.5) Platelet Count 281 x10^3/uL (140-400) Neutrophils (%) (Auto) 64 % (31-73) Lymphocytes (%) (Auto) 24 % (24-48) Monocytes (%) (Auto) 9 % (0-9) Eosinophils (%) (Auto) 3 % (0-3) Basophils (%) (Auto) 1 % (0-3) Neutrophils # (Auto) 4.3 x10^3/uL (1.8-7.7) Lymphocytes # (Auto) 1.6 x10^3/uL (1.0-4.8) Monocytes # (Auto) 0.6 x10^3/uL (0.0-1.1) Eosinophils # (Auto) 0.2 x10^3/uL (0.0-0.7) Basophils # (Auto) 0.0 x10^3/uL (0.0-0.2) Prothrombin Time 11.6 SEC (11.7-14.0) Prothromb Time International Ratio 0.9 (0.8-1.1) Sodium Level 138 mmol/L (136-145) Potassium Level 3.2 mmol/L (3.5-5.1) Chloride Level 100 mmol/L (98-107) Carbon Dioxide Level 30 mmol/L (21-32) Anion Gap 8 (6-14) Blood Urea Nitrogen 16 mg/dL (8-26) Creatinine 1.1 mg/dL (0.7-1.3) Estimated GFR (Cockcroft-Gault) 73.4 BUN/Creatinine Ratio 15 (6-20) Glucose Level 143 mg/dL (70-99) Calcium Level 9.3 mg/dL (8.5-10.1) Magnesium Level 1.9 mg/dL (1.8-2.4) Total Bilirubin 0.4 mg/dL (0.2-1.0) Aspartate Amino Transf (AST/SGOT) 32 U/L (15-37) Alanine Aminotransferase (ALT/SGPT) 63 U/L (16-63) Alkaline Phosphatase 65 U/L (46-116) Creatine Kinase 429 U/L (39-308) Troponin I Quantitative < 0.017 ng/mL (0.000-0.055) XW-Kzv-T-Type Natriuretic Peptide 20 pg/mL (0-124) Total Protein 7.6 g/dL (6.4-8.2) Albumin 4.6 g/dL (3.4-5.0) Albumin/Globulin Ratio 1.5 (1.0-1.7) Triglycerides Level 89 mg/dL (0-150) Cholesterol Level 102 mg/dL (0-200) LDL Cholesterol, Calculated 46 mg/dL (0-100) VLDL Cholesterol, Calculated 18 mg/dL (0-40) Non-HDL Cholesterol Calculated 64 mg/dL (0-129) HDL Cholesterol 38 mg/dL (40-60) Cholesterol/HDL Ratio 2.7 Lipase 102 U/L (73-393) Thyroid Stimulating Hormone (TSH) 0.813 uIU/mL (0.358-3.74) Urine Collection Type Unknown Urine Color Yellow Urine Clarity Clear Urine pH 6.5 (<5.0-8.0) Urine Specific [place] 1.010 (1.000-1.030) Urine Protein Negative mg/dL (NEG-TRACE) Urine Glucose (UA) Negative mg/dL (NEG) Urine Ketones (Stick) Negative mg/dL (NEG) Urine Blood Negative (NEG) Urine Nitrite Negative (NEG) Urine Bilirubin Negative (NEG) Urine Urobilinogen Dipstick 0.2 mg/dL (0.2 mg/dL) Urine Leukocyte Esterase Negative (NEG) Urine RBC 3-5 /HPF (0-2) Urine WBC 1-4 /HPF (0-4) Urine Squamous Epithelial Cells Occ /LPF Urine Transitional Epithelial Cells Occ /LPF Urine Amorphous Sediment Present /HPF Urine Bacteria 0 /HPF (0-FEW) Urine Hyaline Casts Occasional /HPF Urine Mucus Slight /LPF Urine Opiates Screen Neg (NEG) Urine Methadone Screen Neg (NEG) Urine Barbiturates Neg (NEG) Urine Phencyclidine Screen Neg (NEG) Urine Amphetamine/Methamphetamine Neg (NEG) Urine Benzodiazepines Screen Pos (NEG) Urine Cocaine Screen Neg (NEG) Urine Cannabinoids Screen Neg (NEG) Urine Ethyl Alcohol Neg (NEG) SARS-CoV-2 Antigen (Rapid) Negative (NEGATIVE) Laboratory Tests Test 02/29/20 07:37 02/29/20 08:17 02/29/20 09:25 White Blood Count 6.9 x10^3/uL (4.0-11.0) Red Blood Count 4.72 x10^6/uL (4.30-5.70) Hemoglobin 15.5 g/dL (13.0-17.5) Hematocrit 43.5 % (39.0-53.0) Mean Corpuscular Volume 92 fL (79-100) Mean Corpuscular Hemoglobin 33 pg (25-35) Mean Corpuscular Hemoglobin Concent 36 g/dL (31-37) Red Cell Distribution Width 12.7 % (11.5-14.5) Platelet Count 281 x10^3/uL (140-400) Neutrophils (%) (Auto) 64 % (31-73) Lymphocytes (%) (Auto) 24 % (24-48) Monocytes (%) (Auto) 9 % (0-9) Eosinophils (%) (Auto) 3 % (0-3) Basophils (%) (Auto) 1 % (0-3) Neutrophils # (Auto) 4.3 x10^3/uL (1.8-7.7) Lymphocytes # (Auto) 1.6 x10^3/uL (1.0-4.8) Monocytes # (Auto) 0.6 x10^3/uL (0.0-1.1) Eosinophils # (Auto) 0.2 x10^3/uL (0.0-0.7) Basophils # (Auto) 0.0 x10^3/uL (0.0-0.2) Prothrombin Time 11.6 SEC (11.7-14.0) Prothromb Time International Ratio 0.9 (0.8-1.1) Sodium Level 138 mmol/L (136-145) Potassium Level 3.2 mmol/L (3.5-5.1) Chloride Level 100 mmol/L (98-107) Carbon Dioxide Level 30 mmol/L (21-32) Anion Gap 8 (6-14) Blood Urea Nitrogen 16 mg/dL (8-26) Creatinine 1.1 mg/dL (0.7-1.3) Estimated GFR (Cockcroft-Gault) 73.4 BUN/Creatinine Ratio 15 (6-20) Glucose Level 143 mg/dL (70-99) Calcium Level 9.3 mg/dL (8.5-10.1) Magnesium Level 1.9 mg/dL (1.8-2.4) Total Bilirubin 0.4 mg/dL (0.2-1.0) Aspartate Amino Transf (AST/SGOT) 32 U/L (15-37) Alanine Aminotransferase (ALT/SGPT) 63 U/L (16-63) Alkaline Phosphatase 65 U/L (46-116) Creatine Kinase 429 U/L (39-308) Troponin I Quantitative < 0.017 ng/mL (0.000-0.055) TB-Daq-F-Type Natriuretic Peptide 20 pg/mL (0-124) Total Protein 7.6 g/dL (6.4-8.2) Albumin 4.6 g/dL (3.4-5.0) Albumin/Globulin Ratio 1.5 (1.0-1.7) Triglycerides Level 89 mg/dL (0-150) Cholesterol Level 102 mg/dL (0-200) LDL Cholesterol, Calculated 46 mg/dL (0-100) VLDL Cholesterol, Calculated 18 mg/dL (0-40) Non-HDL Cholesterol Calculated 64 mg/dL (0-129) HDL Cholesterol 38 mg/dL (40-60) Cholesterol/HDL Ratio 2.7 Lipase 102 U/L (73-393) Thyroid Stimulating Hormone (TSH) 0.813 uIU/mL (0.358-3.74) Urine Collection Type Unknown Urine Color Yellow Urine Clarity Clear Urine pH 6.5 (<5.0-8.0) Urine Specific [place] 1.010 (1.000-1.030) Urine Protein Negative mg/dL (NEG-TRACE) Urine Glucose (UA) Negative mg/dL (NEG) Urine Ketones (Stick) Negative mg/dL (NEG) Urine Blood Negative (NEG) Urine Nitrite Negative (NEG) Urine Bilirubin Negative (NEG) Urine Urobilinogen Dipstick 0.2 mg/dL (0.2 mg/dL) Urine Leukocyte Esterase Negative (NEG) Urine RBC 3-5 /HPF (0-2) Urine WBC 1-4 /HPF (0-4) Urine Squamous Epithelial Cells Occ /LPF Urine Transitional Epithelial Cells Occ /LPF Urine Amorphous Sediment Present /HPF Urine Bacteria 0 /HPF (0-FEW) Urine Hyaline Casts Occasional /HPF Urine Mucus Slight /LPF Urine Opiates Screen Neg (NEG) Urine Methadone Screen Neg (NEG) Urine Barbiturates Neg (NEG) Urine Phencyclidine Screen Neg (NEG) Urine Amphetamine/Methamphetamine Neg (NEG) Urine Benzodiazepines Screen Pos (NEG) Urine Cocaine Screen Neg (NEG) Urine Cannabinoids Screen Neg (NEG) Urine Ethyl Alcohol Neg (NEG) SARS-CoV-2 Antigen (Rapid) Negative (NEGATIVE) Assessment/Plan Assessment/Plan Chest pain rule out coronary disease Plan Serial enzymes Serial EKGs Consult cardiology Cardiology has seen the patient has decided to take [facility] to [facility] we certainly agree and appreciate their rapid intervention Continue his home IONA inhibitor's Statins Aspirin Beta-blockade if he can tolerate it Cardiac monitoring Await cardiac cath result Justicifation of Admission Dx: Justifications for Admission: Justification of Admission Dx: Yes Angina: Cresendo Worsening of Sym TOREY BONILLA III DO Feb 29, 2020 12:22
[2020-02-29 14:00] VITALS: BP 113/78
[2020-02-29] MEDS ORDERED: OMEG-91 (14:18)
[2020-02-29] MEDS ORDERED: MELO15TA23 (14:18)
[2020-02-29] MEDS ORDERED: LISI40TA2 (14:18)
[2020-02-29] MEDS ORDERED: ROSU40TA22 PO (14:18)
[2020-02-29] MEDS ORDERED: TRAM50TA (14:18)
[2020-02-29] MEDS ORDERED: ALPR1TAB6 (14:18)
[2020-02-29] MEDS ORDERED: LOSA100T14 (14:18)
[2020-02-29] MEDS ORDERED: HYDR25TA10 (14:18)
[2020-02-29] MEDS ORDERED: NIFE90TA49 (14:18)
[2020-02-29] MEDS ORDERED: IBUP800T19 (14:18)
[2020-02-29] MEDS ORDERED: BIOT25006 PO (14:20)
[2020-02-29] MEDS ORDERED: CHOL500045 PO (14:23)
[2020-02-29] MEDS: MORPHINE SULFATE 2 MG/ML VIAL. IV PRN ×2 (14:48→19:13)
[2020-02-29] MEDS ORDERED: LIDOCAINE 1% Multi-Dose 20 ML VIAL. ONE (14:53)
[2020-02-29] MEDS ORDERED: HEPARIN for ARTERIAL LINE 0 ML ONE (14:53)
[2020-02-29] MEDS ORDERED: IODIXANOL 320 MG/ML 100 ML VIAL. ONE (14:53)
[2020-02-29 15:03] VITALS: BP 121/83
[2020-02-29] MEDS ORDERED: ONDANSETRON ODT 4 MG TAB.RAPDIS. PO PRN (16:00)
[2020-02-29] MEDS ORDERED: NON FORMULARY ITEM (Biotin 10,000 MCG) PO PRN (16:00)
--- NOTE | 2020-02-29 18:27 | CARD ---
MR#: [id number] Date of Study: 02/29/2020 Ordering Physician: ÁNGEL PEDROZA, Referring Physician: ÁNGEL PEDROZA, Tech: Amy Valencia APPROVED REPORT EXAM: Two-dimensional and M-mode echocardiogram with Doppler and color Doppler. Other Information Quality : GoodHR: 58bpm INDICATION Acute Cornonary Syndrome 2D DIMENSIONS Left Atrium(2D)2.9 (1.6-4.0cm)IVSd1.3 (0.7-1.1cm) Aortic Root(2D)3.7 (2.0-3.7cm)LVDd4.7 (3.9-5.9cm) LVOT Diameter2.2 (1.8-2.4cm)PWd1.1 (0.7-1.1cm) LVDs3.3 (2.5-4.0cm)FS (%) 29.4 % SV58.8 mlLVEF(%)56.3 (>50%) Aortic Valve AoV Peak Derrick.111.6cm/sAoV VTI23.2cm AO Peak GR.5.0mmHgLVOT VTI 20.53cm AO Mean GR.3mmHg Mitral Valve MV E Jqsqeltr14.3cm/sMV E Peak Gr.2mmHg MV DECEL [id number] A Pkzxyfjk67.8cm/s MV E Mean Gr.1mmHgE/A Ratio1.3 TDI Lateral E' P. V9.71cm/sMedial E' P. V8.81cm/s E/Lateral E'6.8E/Medial E'7.5 Tricuspid Valve TR P. [id number]/sRAP [id number] TR Peak Gr.18xxHvXNFN43jkQv LEFT VENTRICLE The left ventricle is normal size. There is mild concentric left ventricular hypertrophy. The left ve ntricular systolic function is normal and the ejection fraction is within normal range. The Ejection Fraction is 55-60%. There is normal LV segmental wall motion. Transmitral Doppler flow pattern is Gra de II-pseudonormal filling dynamics. RIGHT VENTRICLE The right ventricle is normal size. There is normal right ventricular wall thickness. The right ventr icular systolic function is normal. ATRIA The left atrium size is normal. The right atrium size is normal. The interatrial septum is intact wit h no evidence for an atrial septal defect or patent foramen ovale as noted on 2-D or Doppler imaging. AORTIC VALVE The aortic valve is normal in structure and function. Doppler and Color Flow revealed no significant aortic regurgitation. Calculated aortic valve area is 3.26 cm2 with maximum pressure gradient of 6 mm Hg and mean pressure gradient of 4 mmHg. There is no significant aortic valvular stenosis. MITRAL VALVE The mitral valve is normal in structure and function. There is no evidence of mitral valve prolapse. There is no mitral valve stenosis. Doppler and Color Flow revealed no mitral valve regurgitation note d. TRICUSPID VALVE The tricuspid valve is normal in structure and function. Doppler and Color Flow revealed trace tricus pid regurgitation with an estimated PAP of 31 mmHg. There is no tricuspid valve stenosis. PULMONIC VALVE The pulmonary valve is normal in structure and function. Doppler and Color Flow revealed trace pulmon ic valvular regurgitation. GREAT VESSELS The aortic root is normal in size. The IVC is normal in size and collapses >50% with inspiration. PERICARDIAL EFFUSION There is no evidence of significant pericardial effusion. Critical Notification Critical Value: No <Conclusion> The left ventricle is normal size. The left ventricular systolic function is normal and the ejection fraction is within normal range. The Ejection Fraction is 55-60%. There is mild concentric left ventricular hypertrophy. Doppler and Color Flow revealed no significant aortic regurgitation. Calculated aortic valve area is 3.26 cm2 with maximum pressure gradient of 6 mmHg and mean pressure g radient of 4 mmHg. There is no significant aortic valvular stenosis. Doppler and Color Flow revealed no mitral valve regurgitation noted. Doppler and Color Flow revealed trace tricuspid regurgitation with an estimated PAP of 31 mmHg. Signed by : Jeffery Silverio MD Electronically Approved : 02/29/2020 18:27:16
[2020-02-29] MEDS ORDERED: NICOTINE 14MG PATCH. TD PRN (19:15)
[2020-02-29 19:52] VITALS: BP 117/74
[2020-02-29] MEDS ORDERED: traMADol 50 MG TABLET PO SCH (21:00)
[2020-02-29] MEDS ORDERED: ATORVASTATIN CALCIUM 40 MG TABLET. PO SCH (21:00)
[2020-02-29] MEDS: LISINOPRIL 20 MG TABLET PO SCH (21:28)
[2020-02-29 23:14] VITALS: BP 114/75
[2020-03-01] VITALS (14 sets, daily range): BP systolic 19–121; BP diastolic 59–81
[2020-03-01 02:08] LABS: HEMOGLOBIN A1C 5.2 % (4.8-5.6)
[2020-03-01] MEDS ORDERED: LIDOCAINE 1% PF 2 ML VIAL. ONE (07:06)
[2020-03-01] MEDS ORDERED: IOHEXOL 300 MG/ML 100ML VIAL. ONE (07:06)
[2020-03-01] MEDS ORDERED: fentaNYL PF VIAL 100 MCG/2 ML VIAL ONE ×2 (07:15→07:46)
[2020-03-01] MEDS ORDERED: VERAPAMIL 5 MG/2 ML VIAL. ONE (07:16)
[2020-03-01] MEDS ORDERED: MIDAZOLAM HCL/PF 2 MG/2 ML VIAL. ONE ×2 (07:16→07:46)
[2020-03-01] MEDS ORDERED: NITROGLYCERIN 200 MCG/2 ML SYRINGE FOR CATH/VASC LAB. ONE (07:16)
[2020-03-01] MEDS ORDERED: HEPARIN for IV BOLUS 10,000 UNIT/10 ML VIAL. ONE (07:16)
[2020-03-01] MEDS ORDERED: MIDAZOLAM HCL/PF 2 MG/2 ML VIAL. IV ONE ×2 (08:00)
[2020-03-01] MEDS ORDERED: fentaNYL PF VIAL 100 MCG/2 ML VIAL IV ONE ×2 (08:00)
[2020-03-01] MEDS ORDERED: LIDOCAINE 1% PF 2 ML VIAL. INJ ONE (08:00)
[2020-03-01] MEDS ORDERED: IOHEXOL 300 MG/ML 100ML VIAL. IART ONE (08:00)
[2020-03-01] MEDS ORDERED: NITROGLYCERIN 200 MCG/2 ML SYRINGE FOR CATH/VASC LAB. IART ONE (08:00)
[2020-03-01] MEDS ORDERED: VERAPAMIL 5 MG/2 ML VIAL. IART ONE (08:00)
[2020-03-01] MEDS ORDERED: HEPARIN for IV BOLUS 10,000 UNIT/10 ML VIAL. IART ONE (08:00)
[2020-03-01] MEDS ORDERED: CONTRAST GIVEN. MC PRN (08:15)
--- NOTE | 2020-03-01 08:27 | CARD ---
MR#: [id number] Date of Study: 03/01/2020 Ordering Physician: ÁNGEL PEDROZA, Referring Physician: ÁNGEL PEDROZA, Tech: KAYLYNN BURKETT APPROVED REPORT Technologist: KAYLYNN BURKETT Nurse: SEDRICK CHIANG Procedure(s) performed: Fluoro TIme: 4.0 min Dose: 63.38 min Sedation Time: 29 min Contrast: 81 cc's Omni LHC, Coronary angiography, Left ventriculogram HISTORY : The patient is a 44 year-old male with a history of . [facility] Clinical Frailty Scale [facility] Clinical Frailty Scale: Managing Well Heart Failure Heart Failure: No PROCEDURE NARRATIVE INFORMED CONSENT: After explaining the risks and benefits of the procedure and alternatives, informed consent was obtained. The patient was brought electively to the cardiac catheterization lab. A timeout was performed confi rming the patient's name, date of , procedure, and site of procedure. All necessary personnel w ere wearing the appropriate protective equipment and radiation monitor devices. (See nursing notes for medications administered). ACCESS: The right wrist was sterilely prepped and draped in the usual fashion. The right wrist was infiltrat ed with 1 mL of 2% lidocaine for subcutaneous anesthesia. A 6 English Terumo glide sheath was inserte d into the right radial artery without difficulty. CORONARY ANGIOGRAPHY: Right and left coronary angiography was performed using a 6Fr TIG 4.0 catheter. Left ventricular en d diastolic pressure was obtained with a pigtail catheter and pullback was performed after left ventr iculography. All catheter exchanges and advancements were performed over a guidewire. CLOSURE: At case completion the right radial sheath was removed and a Terumo radial band was applied with 13 m l of air. COMPLICATIONS: The patient tolerated the procedure well and there were no immediate complications. FINDINGS: HEMODYNAMICS: LVEDP 10 mm Hg No gradient on LV to aortic pullback. AO: 128/78 LEFT VENTRICULOGRAM: EF 55% Anterobasal: Normal. Anterolateral: Normal Apical: Normal Diaphragmatic: Normal Posterobasal: Normal CORONARY ANGIOGRAPHY: LM is a large caliber vessel with normal angiographic appearance. LAD is a large caliber vessel with normal angiographic appearance. Ramus is a moderate caliber vessel with normal angiographic apeparance. LCx is a moderate caliber non-dominant vessel with normal angiographic appearance. OM1 is a moderate caliber vessel with normal angiographic appearance. RCA is a large caliber dominant vessel with normal angiographic appearance. RPDA and RPL are moderate caliber vessels with normal angiographic appearance. *Overall flow suggestive of endothelial dysfunction. Conclusion 1. Normal left sided filling pressures. 2. Normal LV systolic function. Ef 55% 3. No significant coronary disease noted. Recommendations Smoking Cessation Aggressive Medical Therapy Signed by : Perfecto Watson, Electronically Approved : 03/01/2020 08:26:19
[2020-03-01] MEDS ORDERED: IBUPROFEN 400 MG TABLET. PO SCH (09:00)
[2020-03-01] MEDS ORDERED: hydroCHLOROthiazide 25 MG TABLET PO SCH (09:00)
[2020-03-01] MEDS ORDERED: OMEGA-3 FATTY ACIDS/FISH OIL 1,000 MG CAPSULE. PO SCH (09:00)
[2020-03-01] MEDS ORDERED: MELOXICAM 7.5 MG TABLET PO SCH (09:00)
[2020-03-01] MEDS ORDERED: LOSARTAN POTASSIUM 50 MG TABLET. PO SCH (09:00)
[2020-03-01] MEDS ORDERED: ALPRAZolam 1 MG TABLET PO SCH (09:00)
[2020-03-01] MEDS ORDERED: CHOLECALCIFEROL (VITAMIN D3) 5,000 UNIT CAPSULE PO SCH (09:00)
[2020-03-01] MEDS: LISINOPRIL 20 MG TABLET PO SCH (09:16)
--- NOTE | 2020-03-01 11:44 | NUR ---
SS following for discharge planning. SS reviewed pt chart and discussed with pt RN. Pt is from home and is currently on room air. Per RN, pt had clean cath. Discharge order on the chart for home with self care.
--- NOTE | 2020-03-01 14:48 | DS ---
DATE OF DISCHARGE: 03/01/2020 ADMISSION DIAGNOSIS: Chest pain. DISCHARGE DIAGNOSIS: Atypical chest pain. PROCEDURES: Cardiac catheterization, which was clean. HOSPITAL COURSE: The patient is a pleasant middle-aged male, who presented with chest pain yesterday. We admitted him. We consulted Cardiology. He was taken for cardiac catheterization. The cath was apparently mostly clean. He is doing well. We plan to discharge with close outpatient followup. DISPOSITION: Home. ACTIVITY: As tolerated. DIET: Low sodium. MEDICATIONS: Please see the MRAD. TOTAL TIME: 32 minutes. TOREY BONILLA DO DR: [email or web address] JOB#: [id number] / [id number]
--- NOTE | 2020-03-01 15:42 | NUR ---
Discharge Note: GEOFFREY SAMAYOA Discharge instructions and discharge home medications reviewed with Patient and a copy given. All questions have been answered and understanding verbalized. The following instructions and handouts were given: report any worsening symptoms, bleeding, infection, high BP. Smoking cessation. Post cath restrictions. Discontinued lines and drains: peripheral IV's discontinued. Patient discharged to home with spouse via ambulation.
== END 2020-03-01 15:35 | disposition home or self-care (01) ==
LOC: ER 07:24 → 2 NORTH 09:46 → ED HOLD 09:48 → 2 NORTH 13:50
PROVIDERS: ADMIT Internal Medicine; ATTEND Internal Medicine
DX: R07.2 Precordial pain (principal); Z20.828 Contact with and (suspected) exposure to other viral communicable diseases; T63.451A Toxic effect of venom of hornets, accidental (unintentional), initial encounter; T78.2XXA Anaphylactic shock, unspecified, initial encounter; N49.2 Inflammatory disorders of scrotum; K52.9 Noninfective gastroenteritis and colitis, unspecified; M54.30 Sciatica, unspecified side; I10 Essential (primary) hypertension; E78.5 Hyperlipidemia, unspecified; F17.210 Nicotine dependence, cigarettes, uncomplicated; Z79.899 Other long term (current) drug therapy
CPT/HCPCS: 36415; 71045; 80053; 80061; 80307; 81001; 82550; 83036; 83690; 83735; 83880; 84443; 84484; 85025; 85610; 87426; 93005; 93306; 93458; 96374; 96375; 96376; 99285; C1769; C1892; G0378; J1644; J2250; J2270; J3010; J3490; J7030; Q9967; U0003; 99152; 99153; G0379